=== PATIENT | male | born 1945 | race Caucasian/White ===

== ENCOUNTER 2017-03-05 18:24 | Emergency (ER) | payer BC, MEDICARE ==
[~2017-03-05] VITALS: Ht 170.2 cm; Wt 87.8 kg
[~2017-03-05 18:24] MED LIST: ALLO100T; ALLO100T PO; CLOP75TA3; GLUC100016 PO; IBUP-793 PO; KORE100C PO; LISI-594; OMEP40CA3 PO; OMG1KC PO; ROSU40TA PO
--- OUTSIDE RECORDS SUMMARY | 2017-03-05 18:28 | XMS REPORT ---
Author Author GENERATED, SYSTEM Organization Unknown Address Unknown Phone Unavailable Care Team Providers Care Associate Consulting Engineer Name Role Phone UNASSIGNED DOCTOR , DOCTOR PP [phone] Reason For Visit Chief Complaint TRIPPED, L LEG Social History Functional Status Vital Signs Results Problems Encounter Diagnosis No relevant problems exist. Encounters Encounter Diagnosis No relevant problems exist. Plan of Care Procedures No relevant procedures performed. Immunizations No immunizations administered or ordered. Hospital Course Hospital Discharge Instructions Allergies, Adverse Reactions, Alerts Latex Allergy has not been assessed.IV Contrast Allergy has not been assessed. Medication Medication reconciliation has not been performed.
--- OUTSIDE RECORDS SUMMARY | 2017-03-05 18:33 | XMS REPORT ---
Author Author GENERATED, SYSTEM Organization Unknown Address Unknown Phone Unavailable Care Team Providers Care Ware Server Name Role Phone UNASSIGNED DOCTOR , DOCTOR PP [phone] Reason For Visit Chief Complaint TRIPPED, L [...]
--- NOTE | 2017-03-05 19:32 | NUR ---
stated, "He was fine last night playing cards, started coughing today and complaining of feeling worse as the day went on. His cough started sounding very wet. "
[2017-03-05 22:04] VITALS: BP 119/72
== END 2017-03-05 21:10 | disposition home or self-care (01) ==
LOC: ED 18:28
DX: S61.011A Laceration without foreign body of right thumb without damage to nail, initial encounter (principal); W26.0XXA Contact with knife, initial encounter; Y93.G1 Activity, food preparation and clean up; Y92.000 Kitchen of unspecified non-institutional (private) residence as the place of occurrence of the external cause
CPT/HCPCS: 12002; 99282; 99283

== ENCOUNTER 2017-03-07 09:36 | Emergency (ER) | payer BC, MEDICARE ==
[~2017-03-07] VITALS: Ht 170.2 cm; Wt 87.8 kg
--- OUTSIDE RECORDS SUMMARY | 2017-03-07 09:42 | XMS REPORT ---
Author Author GENERATED, SYSTEM Organization Unknown Address Unknown Phone Unavailable Care Team Providers Care Smelting Engineer Name Role Phone UNASSIGNED DOCTOR , DOCTOR PP [phone] Reason For Visit Chief Complaint TRIPPED, L [...]
[2017-03-07 10:01] VITALS: BP 140/55
--- NOTE | 2017-03-07 10:01 | NUR ---
dermabond placed on wound
== END 2017-03-07 10:15 | disposition home or self-care (01) ==
LOC: EDUNIT# 09:36 → ED 09:38
DX: Z48.01 Encounter for change or removal of surgical wound dressing (principal)
CPT/HCPCS: 99282; 99283